=== PATIENT | male | born 1945 | race Caucasian/White ===

== ENCOUNTER 2016-11-02 05:07 | Inpatient (IN) | payer MEDICAID, MEDICARE, OTHER ==
[~2016-11-02] VITALS: Ht 185.4 cm; Wt 109.0 kg
[2016-11-02 06:08] LABS: Hemoglobin 11.7 g/dL (13.5-17.5); Mean Corpuscular Hemoglobin 28.2 pg (28.0-32.0); Mean Corpuscular Hgb Conc. 31.6 g/dL (32.0-36.0); Mean Corpuscular Volume 89.3 fL (80.0-100.0); Mean Platelet Volume 8.7 fL (7.4-10.4); Platelet Count (auto) 207 10^3/uL (140-450); Red Cell Distribution Width 15.2 % (11.6-16.0); SUSPECT VIEW TRANSMISSION; White Blood Cell 22.8 10^3/uL (4.4-10.8)
[2016-11-02 06:14] LABS: Metamyelocytes % 0; Myelocytes % 0; Promyelocytes % 0; Reactive Lymphocytes 0
[2016-11-02 06:17] LABS: Urine Bilirubin Negative (Negative); Urine Blood 1+ /uL (Negative); Urine Color Yellow (Yellow); Urine Glucose Normal (Normal); Urine Ketone Negative (Negative); Urine Nitrite POSITIVE (Negative); Urine RBC 3 /hpf (0 - 3); Urine Urobilinogen Normal (Negative)
[2016-11-02 06:26] LABS: Albumin 4.2 g/dL (3.4-5.0); BUN/Creatinine Ratio 18.1; Bilirubin, Total 0.7 mg/dL (0.2-1.0); Calcium 9.8 mg/dL (8.5-10.1); Potassium 3.9 mmol/L (3.5-5.1); Total Protein 7.1 g/dL (6.4-8.2)
[2016-11-02 06:36] LABS: Platelet Estimate Adequate; RBC Morphology Normal
[2016-11-02] MEDS ORDERED: SODIUM CHLORIDE 0.9% 1,000 ML IV ONE ×4 (07:29→08:21)
[2016-11-02] MEDS ORDERED: ACETAMINOPHEN 500 MG TAB PO ONE (09:15)
[2016-11-02] MEDS ORDERED: cefTRIAXone 1GM/50ML D5W 50 ML IV ONE (10:15)
[2016-11-02] MEDS ORDERED: DEXTROSE (50%) 50ML SYRG IV PRN (10:15)
[2016-11-02] MEDS ORDERED: METOLAZONE 5 MG TAB PO ONE (10:45)
[2016-11-02] MEDS ORDERED: TEMAZEPAM 15 MG CAP PO PRN (10:45)
[2016-11-02] MEDS ORDERED: TACROLIMUS 1 MG CAP PO ONE (10:45)
[2016-11-02] MEDS ORDERED: NIFEdipine ER 30 MG TAB PO ONE (10:45)
[2016-11-02] MEDS ORDERED: CITALOPRAM HYDROBR 20 MG TAB PO ONE (10:45)
[2016-11-02] MEDS ORDERED: MORPHINE SULF INJ 2 MG/ML SYRINGE 1ML IV PRN ×2 (10:45)
[2016-11-02] MEDS ORDERED: ONDANSETRON HCL 4 MG/2 ML VIAL IV PRN (10:45)
[2016-11-02] MEDS ORDERED: FINASTERIDE 5 MG TAB PO ONE (10:45)
[2016-11-02] MEDS ORDERED: HYDROcodone-ACET 5/325MG TAB PO PRN (10:45)
[2016-11-02] MEDS ORDERED: ACETAMINOPHEN 325 MG TAB PO PRN (10:45)
[2016-11-02] MEDS ORDERED: ASPirin-EC 81 mg tab PO ONE (10:45)
[2016-11-02] MEDS ORDERED: NITROGLYCERIN 0.4 MG SL TAB SL PRN (10:45)
[2016-11-02] MEDS: predniSONE 5 MG TAB PO SCH (10:59)
[2016-11-02] MEDS: LINEZOLID 600MG/300ML 300 ML IV SCH ×2 (11:26→23:14)
[2016-11-02] MEDS ORDERED: cloNIDine HCL 0.1 MG TAB PO ONE (11:30)
[2016-11-02] MEDS: InsuLIN REG 1unit/0.01ml Soln (100units/ml) SC SCH ×3 (11:30→22:00)
[2016-11-02] MEDS: ACCU-CHEK COMFORT CURVE STRIP VI SCH ×3 (11:30→23:10)
[2016-11-02] MEDS ORDERED: methylPREDNISolone SOD SUCC 125 MG/2 ML VL IV SCH (12:00)
[2016-11-02 13:01] VITALS: BP 158/74
[2016-11-02] MEDS: SODIUM CHLOR 0.9% PF (SALINE LOCK) 10ML VIAL IV SCH ×2 (14:00→22:28)
[2016-11-02] MEDS: ROPINIROLE 2 MG PO SCH ×2 (14:00→22:00)
[2016-11-02] MEDS ORDERED: PRE5T PO (16:52)
[2016-11-02] MEDS ORDERED: TACR1CAP19 OR (16:54)
[2016-11-02] MEDS ORDERED: GLIP1TAB38 PO (16:59)
[2016-11-02] MEDS ORDERED: MYCO360T PO (16:59)
[2016-11-02] MEDS ORDERED: MULT1TAB61 BC (17:04)
[2016-11-02] MEDS ORDERED: NIFE90TA30 PO (17:04)
[2016-11-02] MEDS ORDERED: CARV25TA PO (17:04)
[2016-11-02] MEDS ORDERED: ALLO300T2 PO (17:05)
[2016-11-02] MEDS ORDERED: ASPI-498 OR (17:05)
[2016-11-02] MEDS ORDERED: TER5T PO (17:07)
[2016-11-02] MEDS ORDERED: CITA10TA70 PO (17:08)
[2016-11-02] MEDS: CALCIUM W/VIT D (600MG/400IU) TAB PO SCH (17:15)
[2016-11-02] MEDS: glipiZIDE 5 MG TAB PO SCH (18:00)
[2016-11-02 18:38] VITALS: BP 147/67
[2016-11-02 21:33] VITALS: BP 128/61
[2016-11-02] MEDS: MYFORTIC PO SCH (22:00)
[2016-11-02] MEDS: TACROLIMUS 1 MG CAP PO SCH (22:00)
[2016-11-02] MEDS: CARVEDILOL 12.5 MG TAB PO SCH (22:25)
[2016-11-02] MEDS: ALLOPURINOL 100 MG TAB PO SCH (22:26)
[2016-11-02] MEDS: TERAZOSIN HCL 1 MG CAP PO SCH (22:49)
[2016-11-03] MEDS: TACROLIMUS 1 MG CAP PO SCH ×3 (00:36→21:29)
[2016-11-03] MEDS: MYFORTIC PO SCH ×3 (00:37→21:32)
[2016-11-03] MEDS ORDERED: VANCOMYCIN PER PHARMACY 0 MG IV SCH ×2 (01:30→03:15)
[2016-11-03] MEDS ORDERED: VANCOMYCIN 1GM/250ML D5W 250 ML IV ONE (01:45)
[2016-11-03 05:03] VITALS: BP 129/59
[2016-11-03] MEDS: SODIUM CHLOR 0.9% PF (SALINE LOCK) 10ML VIAL IV SCH ×3 (05:18→21:32)
[2016-11-03] MEDS: ROPINIROLE 2 MG PO SCH ×3 (05:18→21:32)
[2016-11-03 06:12] LABS: Hematocrit 34.1 % (41.0-53.0); Hemoglobin 10.8 g/dL (13.5-17.5); Mean Corpuscular Hemoglobin 28.9 pg (28.0-32.0); Mean Corpuscular Hgb Conc. 31.8 g/dL (32.0-36.0); Mean Platelet Volume 9.5 fL (7.4-10.4); Platelet Count (auto) 108 10^3/uL (140-450); Red Cell Distribution Width 14.6 % (11.6-16.0); SUSPECT VIEW TRANSMISSION
[2016-11-03] MEDS: InsuLIN REG 1unit/0.01ml Soln (100units/ml) SC SCH ×4 (06:33→21:39)
[2016-11-03] MEDS: ACCU-CHEK COMFORT CURVE STRIP VI SCH ×4 (06:33→21:33)
[2016-11-03] MEDS: glipiZIDE 5 MG TAB PO SCH ×2 (06:34→17:37)
[2016-11-03 06:37] LABS: White Blood Cell 30.4 10^3/uL (4.4-10.8)
[2016-11-03 06:38] LABS: Metamyelocytes % 0; Myelocytes % 0; Promyelocytes % 0; Reactive Lymphocytes 0
[2016-11-03 06:45] LABS: Albumin 3.1 g/dL (3.4-5.0); BUN/Creatinine Ratio 14.4; Bilirubin, Total 0.5 mg/dL (0.2-1.0); Calcium 8.6 mg/dL (8.5-10.1); Uric Acid 3.9 mg/dL (3.5-7.2)
[2016-11-03 07:10] LABS: Platelet Estimate Decreased
[2016-11-03 08:40] VITALS: BP 140/68
[2016-11-03] MEDS ORDERED: cefTRIAXone 1GM/50ML D5W 50 ML IV SCH (09:00)
[2016-11-03] MEDS: PIPERACILLIN-TAZOB 2.25GM 50 ML IV SCH ×3 (09:44→20:53)
[2016-11-03] MEDS: ASPirin-EC 81 mg tab PO SCH (09:44)
[2016-11-03] MEDS: ALLOPURINOL 100 MG TAB PO SCH ×2 (09:44→21:29)
[2016-11-03] MEDS: predniSONE 5 MG TAB PO SCH (09:44)
[2016-11-03] MEDS: CARVEDILOL 12.5 MG TAB PO SCH ×2 (09:45→21:31)
[2016-11-03] MEDS: CALCIUM W/VIT D (600MG/400IU) TAB PO SCH ×2 (09:46→17:37)
[2016-11-03] MEDS: FAMOTIDINE 20 MG TAB PO SCH (09:46)
[2016-11-03] MEDS: CHOLECALCIFEROL (VITD3) 1,000 UNIT TAB PO SCH (09:46)
[2016-11-03] MEDS: CINACALCET HYDROCHLORIDE 30 MG TAB PO SCH (09:46)
[2016-11-03] MEDS: NIFEdipine ER 30 MG TAB PO SCH (09:46)
[2016-11-03] MEDS: CITALOPRAM HYDROBR 20 MG TAB PO SCH (09:47)
[2016-11-03] MEDS ORDERED: METOLAZONE 5 MG TAB PO SCH (10:00)
[2016-11-03] MEDS ORDERED: SENSIPAR 30 MG PO SCH (10:00)
[2016-11-03] MEDS ORDERED: FINASTERIDE 5 MG TAB PO SCH (10:00)
[2016-11-03 12:00] VITALS: BP 155/71
[2016-11-03] MEDS: MULTIPLE VITAMIN TAB PO SCH (12:32)
[2016-11-03] MEDS ORDERED: predniSONE 5 MG TAB PO ONE (12:45)
[2016-11-03] MEDS ORDERED: LEVOFLOXACIN 250MG 50 ML IV ONE (13:00)
[2016-11-03] MEDS: SODIUM CHLORIDE 0.9% 1,000 ML IV SCH (13:42)
[2016-11-03] MEDS: FINASTERIDE 5 MG TAB PO SCH (13:42)
[2016-11-03 17:03] VITALS: BP 122/53
[2016-11-03] MEDS ORDERED: VANCOMYCIN 1,500 MG in D5W 5% 250 ML IV ONE (20:00)
[2016-11-03 21:23] VITALS: BP 105/58
[2016-11-03] MEDS: TERAZOSIN HCL 1 MG CAP PO SCH (21:28)
[2016-11-04] MEDS: PIPERACILLIN-TAZOB 2.25GM 50 ML IV SCH ×2 (03:00→08:57)
[2016-11-04] MEDS: SODIUM CHLORIDE 0.9% 1,000 ML IV SCH ×3 (04:46→22:49)
[2016-11-04 05:18] VITALS: BP 124/59
[2016-11-04] MEDS: ROPINIROLE 2 MG PO SCH ×3 (05:25→22:00)
[2016-11-04] MEDS: SODIUM CHLOR 0.9% PF (SALINE LOCK) 10ML VIAL IV SCH ×3 (05:25→22:49)
[2016-11-04 05:45] LABS: Hemoglobin 9.9 g/dL (13.5-17.5); Mean Corpuscular Hemoglobin 28.5 pg (28.0-32.0); Mean Corpuscular Hgb Conc. 31.9 g/dL (32.0-36.0); Mean Corpuscular Volume 89.4 fL (80.0-100.0); Mean Platelet Volume 9.8 fL (7.4-10.4); Platelet Count (auto) 127 10^3/uL (140-450); SUSPECT VIEW TRANSMISSION; White Blood Cell 21.3 10^3/uL (4.4-10.8)
[2016-11-04 05:51] LABS: Metamyelocytes % 0; Myelocytes % 0; Promyelocytes % 0; Reactive Lymphocytes 0
[2016-11-04 06:01] LABS: Albumin 2.8 g/dL (3.4-5.0); BUN/Creatinine Ratio 12.8; Calcium 8.2 mg/dL (8.5-10.1); Potassium 3.6 mmol/L (3.5-5.1)
[2016-11-04] MEDS: glipiZIDE 5 MG TAB PO SCH ×2 (06:02→17:38)
[2016-11-04] MEDS: InsuLIN REG 1unit/0.01ml Soln (100units/ml) SC SCH ×4 (06:02→22:42)
[2016-11-04] MEDS: ACCU-CHEK COMFORT CURVE STRIP VI SCH ×4 (06:03→22:00)
[2016-11-04 06:04] LABS: Bilirubin, Total 0.5 mg/dL (0.2-1.0); Total Protein 6.2 g/dL (6.4-8.2)
[2016-11-04 06:39] LABS: Platelet Estimate Decreased
[2016-11-04] MEDS: CALCIUM W/VIT D (600MG/400IU) TAB PO SCH ×2 (08:07→17:37)
[2016-11-04 09:00] VITALS: BP 132/70
[2016-11-04] MEDS: CINACALCET HYDROCHLORIDE 30 MG TAB PO SCH (09:49)
[2016-11-04] MEDS: TACROLIMUS 1 MG CAP PO SCH ×2 (09:49→22:52)
[2016-11-04] MEDS: CHOLECALCIFEROL (VITD3) 1,000 UNIT TAB PO SCH (09:50)
[2016-11-04] MEDS: MYFORTIC PO SCH ×2 (09:50→22:49)
[2016-11-04] MEDS: MULTIPLE VITAMIN TAB PO SCH (09:50)
[2016-11-04] MEDS: CITALOPRAM HYDROBR 20 MG TAB PO SCH (09:51)
[2016-11-04] MEDS: ASPirin-EC 81 mg tab PO SCH (09:51)
[2016-11-04] MEDS: FAMOTIDINE 20 MG TAB PO SCH (09:51)
[2016-11-04] MEDS: predniSONE 5 MG TAB PO SCH (09:51)
[2016-11-04] MEDS: CARVEDILOL 12.5 MG TAB PO SCH ×2 (09:52→22:52)
[2016-11-04] MEDS: ALLOPURINOL 100 MG TAB PO SCH ×2 (09:53→22:52)
[2016-11-04] MEDS: FINASTERIDE 5 MG TAB PO SCH (09:53)
[2016-11-04] MEDS: NIFEdipine ER 30 MG TAB PO SCH (09:53)
[2016-11-04] MEDS ORDERED: SODIUM CHLORIDE 0.9% 2,000 ML IV ONE (10:30)
[2016-11-04] MEDS ORDERED: FUROSEMIDE 40 MG/4 ML VIAL ONE (11:24)
[2016-11-04] MEDS: LEVOFLOXACIN 250MG 50 ML IV SCH (12:31)
[2016-11-04 13:00] VITALS: BP 132/69
[2016-11-04] MEDS: cefTRIAXone 1GM/50ML D5W 50 ML IV SCH (13:18)
[2016-11-04 17:00] VITALS: BP 124/62
[2016-11-04 22:11] VITALS: BP 122/67
[2016-11-04 22:30] LABS: Urine Bilirubin Negative (Negative); Urine Color Yellow (Yellow); Urine Glucose Normal (Normal); Urine Ketone Negative (Negative); Urine Nitrite Negative (Negative); Urine RBC 44 /hpf (0 - 3); Urine Squamous Epithelial Cell FEW /hpf (<5); Urine Urobilinogen Normal (Negative); Urine pH 5.5 (5.0-8.0)
[2016-11-04 22:39] LABS: Urine Blood 3+ /uL (Negative)
[2016-11-04] MEDS: TERAZOSIN HCL 1 MG CAP PO SCH (23:08)
[2016-11-05] MEDS: SODIUM CHLORIDE 0.9% 1,000 ML IV SCH (05:00)
[2016-11-05 05:08] VITALS: BP 127/66
[2016-11-05] MEDS: ROPINIROLE 2 MG PO SCH ×3 (05:44→21:06)
[2016-11-05] MEDS: SODIUM CHLOR 0.9% PF (SALINE LOCK) 10ML VIAL IV SCH ×3 (05:44→21:26)
[2016-11-05 06:05] LABS: Hemoglobin 9.8 g/dL (13.5-17.5); Mean Corpuscular Hemoglobin 28.1 pg (28.0-32.0); Mean Corpuscular Hgb Conc. 31.5 g/dL (32.0-36.0); Mean Corpuscular Volume 89.3 fL (80.0-100.0); Mean Platelet Volume 10.1 fL (7.4-10.4); Platelet Count (auto) 118 10^3/uL (140-450); Red Cell Distribution Width 15.8 % (11.6-16.0); SUSPECT VIEW TRANSMISSION; White Blood Cell 19.7 10^3/uL (4.4-10.8)
[2016-11-05 06:10] LABS: Metamyelocytes % 0; Myelocytes % 0; Promyelocytes % 0; Reactive Lymphocytes 0
[2016-11-05 06:17] LABS: Calcium 8.5 mg/dL (8.5-10.1); Potassium 3.3 mmol/L (3.5-5.1)
[2016-11-05] MEDS: glipiZIDE 5 MG TAB PO SCH ×2 (06:21→18:20)
[2016-11-05] MEDS: ACCU-CHEK COMFORT CURVE STRIP VI SCH ×4 (06:23→21:28)
[2016-11-05] MEDS: InsuLIN REG 1unit/0.01ml Soln (100units/ml) SC SCH ×4 (06:27→21:35)
[2016-11-05 06:52] LABS: Burr Cells FEW; Giant Platelets Few; Platelet Estimate Decreased
[2016-11-05 07:47] VITALS: BP 140/67
[2016-11-05] MEDS: CALCIUM W/VIT D (600MG/400IU) TAB PO SCH ×2 (09:05→18:20)
[2016-11-05] MEDS: CINACALCET HYDROCHLORIDE 30 MG TAB PO SCH (10:00)
[2016-11-05] MEDS: MULTIPLE VITAMIN TAB PO SCH (10:51)
[2016-11-05] MEDS: CITALOPRAM HYDROBR 20 MG TAB PO SCH (10:51)
[2016-11-05] MEDS: CARVEDILOL 12.5 MG TAB PO SCH ×2 (10:53→21:27)
[2016-11-05] MEDS: FINASTERIDE 5 MG TAB PO SCH (10:54)
[2016-11-05] MEDS: ALLOPURINOL 100 MG TAB PO SCH ×2 (10:54→21:27)
[2016-11-05] MEDS: FAMOTIDINE 20 MG TAB PO SCH (10:55)
[2016-11-05] MEDS: CHOLECALCIFEROL (VITD3) 1,000 UNIT TAB PO SCH (10:56)
[2016-11-05] MEDS: ASPirin-EC 81 mg tab PO SCH (10:56)
[2016-11-05] MEDS: predniSONE 5 MG TAB PO SCH (10:57)
[2016-11-05] MEDS: MYFORTIC PO SCH ×2 (10:58→21:26)
[2016-11-05] MEDS: LEVOFLOXACIN 250MG 50 ML IV SCH (11:10)
[2016-11-05 11:44] VITALS: BP 151/69
[2016-11-05] MEDS: SOD CHL 0.45% 1,000 ML IV SCH ×2 (11:50→21:05)
[2016-11-05] MEDS ORDERED: TACROLIMUS 1 MG CAP PO ONE (13:00)
[2016-11-05] MEDS: cefTRIAXone 1GM/50ML D5W 50 ML IV SCH (13:25)
[2016-11-05 15:22] LABS: Urine Bilirubin Negative (Negative); Urine Blood 3+ /uL (Negative); Urine Color Yellow (Yellow); Urine Glucose Normal (Normal); Urine Ketone Negative (Negative); Urine Mucus FEW (None Seen); Urine Nitrite Negative (Negative); Urine RBC 411 /hpf (0 - 3); Urine Squamous Epithelial Cell FEW /hpf (<5); Urine Urobilinogen Normal (Negative); Urine pH 5.5 (5.0-8.0)
[2016-11-05 16:18] VITALS: BP 148/74
[2016-11-05] MEDS: LOPERAMIDE HCL 2 MG CAP PO PRN (18:20)
[2016-11-05 19:47] LABS: BUN/Creatinine Ratio 15.2; Calcium 8.8 mg/dL (8.5-10.1); Potassium 3.3 mmol/L (3.5-5.1)
[2016-11-05] MEDS: TERAZOSIN HCL 1 MG CAP PO SCH (21:28)
[2016-11-05 22:21] VITALS: BP 148/73
[2016-11-06 04:52] VITALS: BP 137/63
[2016-11-06] MEDS: ROPINIROLE 2 MG PO SCH ×3 (05:39→22:00)
[2016-11-06] MEDS: SODIUM CHLOR 0.9% PF (SALINE LOCK) 10ML VIAL IV SCH ×3 (05:48→22:32)
[2016-11-06] MEDS: SOD CHL 0.45% 1,000 ML IV SCH ×2 (05:48→14:58)
[2016-11-06] MEDS: ACCU-CHEK COMFORT CURVE STRIP VI SCH ×4 (05:48→22:32)
[2016-11-06] MEDS: glipiZIDE 5 MG TAB PO SCH ×2 (05:51→18:00)
[2016-11-06] MEDS: InsuLIN REG 1unit/0.01ml Soln (100units/ml) SC SCH ×4 (05:51→22:00)
[2016-11-06 06:19] LABS: Basophils # (auto) 0 uL; Eosinophils # (auto) 0 uL; Eosinophils % (auto) 0.1 % (0.0-7.0); Hematocrit 32.6 % (41.0-53.0); Hemoglobin 10.4 g/dL (13.5-17.5); Lymphocytes # (auto) 0.3 uL; Lymphocytes % (auto) 1.6 % (10.0-50.0); Mean Corpuscular Hemoglobin 28.2 pg (28.0-32.0); Mean Corpuscular Volume 88.2 fL (80.0-100.0); Mean Platelet Volume 10.1 fL (7.4-10.4); Monocytes # (auto) 0.9 uL; Monocytes % (auto) 5.4 % (0.0-12.0); Neutrophils # (auto) 14.6 uL; Neutrophils % (auto) 92.9 % (37.0-80.0); Platelet Count (auto) 110 10^3/uL (140-450); Red Cell Distribution Width 15.8 % (11.6-16.0); SUSPECT VIEW TRANSMISSION; White Blood Cell 15.7 10^3/uL (4.4-10.8)
[2016-11-06 06:54] LABS: Albumin 2.7 g/dL (3.4-5.0); BUN/Creatinine Ratio 17.3; Bilirubin, Total 0.5 mg/dL (0.2-1.0); Calcium 9.1 mg/dL (8.5-10.1); Potassium 3.2 mmol/L (3.5-5.1); Total Protein 6.2 g/dL (6.4-8.2)
[2016-11-06 08:44] VITALS: BP 159/82
[2016-11-06] MEDS: CALCIUM W/VIT D (600MG/400IU) TAB PO SCH ×2 (09:26→18:21)
[2016-11-06] MEDS: ASPirin-EC 81 mg tab PO SCH (09:26)
[2016-11-06] MEDS: TACROLIMUS 1 MG CAP PO SCH ×2 (09:26→22:21)
[2016-11-06] MEDS: CHOLECALCIFEROL (VITD3) 1,000 UNIT TAB PO SCH (09:26)
[2016-11-06] MEDS: MYFORTIC PO SCH ×2 (09:26→22:31)
[2016-11-06] MEDS: CITALOPRAM HYDROBR 20 MG TAB PO SCH (09:26)
[2016-11-06] MEDS: predniSONE 5 MG TAB PO SCH (09:27)
[2016-11-06] MEDS: FINASTERIDE 5 MG TAB PO SCH (09:27)
[2016-11-06] MEDS: FAMOTIDINE 20 MG TAB PO SCH (09:27)
[2016-11-06] MEDS: ALLOPURINOL 100 MG TAB PO SCH ×2 (09:27→22:30)
[2016-11-06] MEDS: MULTIPLE VITAMIN TAB PO SCH (09:27)
[2016-11-06] MEDS: CARVEDILOL 12.5 MG TAB PO SCH ×2 (09:28→22:20)
[2016-11-06] MEDS: LEVOFLOXACIN 250MG 50 ML IV SCH (10:56)
[2016-11-06 12:50] VITALS: BP 158/83
[2016-11-06] MEDS: cefTRIAXone 1GM/50ML D5W 50 ML IV SCH (13:03)
[2016-11-06] MEDS ORDERED: POTASSIUM CHL 20 Meq TABLET PO ONE (14:30)
[2016-11-06] MEDS: hydrALAZINE HCL 25 MG TAB PO PRN ×2 (14:49→22:20)
[2016-11-06 17:39] VITALS: BP 171/89
[2016-11-06] MEDS: LABETALOL HCL 5 MG/ML 4ML SYRINGE IV PRN (19:02)
[2016-11-06 21:57] VITALS: BP 183/87
[2016-11-06] MEDS: TERAZOSIN HCL 1 MG CAP PO SCH (22:22)
[2016-11-07] MEDS: LABETALOL HCL 5 MG/ML 4ML SYRINGE IV PRN ×2 (04:15→11:16)
[2016-11-07 05:03] VITALS: BP 189/91
[2016-11-07 05:53] LABS: Basophils # (auto) 0 uL; Basophils % (auto) 0.1 % (0.0-2.0); Eosinophils # (auto) 0 uL; Eosinophils % (auto) 0.1 % (0.0-7.0); Hematocrit 31.1 % (41.0-53.0); Hemoglobin 9.9 g/dL (13.5-17.5); Lymphocytes # (auto) 0.3 uL; Lymphocytes % (auto) 2.6 % (10.0-50.0); Mean Corpuscular Hemoglobin 27.9 pg (28.0-32.0); Mean Corpuscular Volume 87.3 fL (80.0-100.0); Mean Platelet Volume 9.7 fL (7.4-10.4); Monocytes # (auto) 1.2 uL; Monocytes % (auto) 10.1 % (0.0-12.0); Neutrophils # (auto) 10.7 uL; Neutrophils % (auto) 87.1 % (37.0-80.0); Platelet Count (auto) 98 10^3/uL (140-450); Red Cell Distribution Width 15.3 % (11.6-16.0); White Blood Cell 12.3 10^3/uL (4.4-10.8)
[2016-11-07] MEDS: hydrALAZINE HCL 25 MG TAB PO PRN ×2 (05:53→12:47)
[2016-11-07] MEDS: ROPINIROLE 2 MG PO SCH ×3 (06:00→22:00)
[2016-11-07 06:02] LABS: INR 1.06 (0.9-1.15); Prothrombin Time 10.9 sec (9.37-12.3)
[2016-11-07 06:17] LABS: Albumin 2.6 g/dL (3.4-5.0); BUN/Creatinine Ratio 17.9; Bilirubin, Total 0.6 mg/dL (0.2-1.0); Calcium 10.1 mg/dL (8.5-10.1); Magnesium 1.8 mg/dL (1.6-2.6); Potassium 3.4 mmol/L (3.5-5.1); Total Protein 6.1 g/dL (6.4-8.2)
[2016-11-07] MEDS: glipiZIDE 5 MG TAB PO SCH ×2 (06:42→17:28)
[2016-11-07] MEDS: SODIUM CHLOR 0.9% PF (SALINE LOCK) 10ML VIAL IV SCH ×3 (06:43→23:49)
[2016-11-07] MEDS: ACCU-CHEK COMFORT CURVE STRIP VI SCH ×4 (06:44→23:50)
[2016-11-07] MEDS: InsuLIN REG 1unit/0.01ml Soln (100units/ml) SC SCH ×4 (06:45→22:36)
[2016-11-07 08:22] VITALS: BP 156/62
[2016-11-07] MEDS: CHOLECALCIFEROL (VITD3) 1,000 UNIT TAB PO SCH (09:26)
[2016-11-07] MEDS: TACROLIMUS 1 MG CAP PO SCH ×2 (09:26→22:16)
[2016-11-07] MEDS: CALCIUM W/VIT D (600MG/400IU) TAB PO SCH ×2 (09:26→17:27)
[2016-11-07] MEDS: CITALOPRAM HYDROBR 20 MG TAB PO SCH (09:26)
[2016-11-07] MEDS: MULTIPLE VITAMIN TAB PO SCH (09:26)
[2016-11-07] MEDS: FINASTERIDE 5 MG TAB PO SCH (09:27)
[2016-11-07] MEDS: ASPirin-EC 81 mg tab PO SCH (09:27)
[2016-11-07] MEDS: FAMOTIDINE 20 MG TAB PO SCH (09:27)
[2016-11-07] MEDS: predniSONE 5 MG TAB PO SCH (09:27)
[2016-11-07] MEDS: LOPERAMIDE HCL 2 MG CAP PO PRN ×2 (09:27→22:24)
[2016-11-07] MEDS: ALLOPURINOL 100 MG TAB PO SCH ×2 (09:27→22:18)
[2016-11-07] MEDS: CARVEDILOL 12.5 MG TAB PO SCH ×2 (09:28→22:17)
[2016-11-07] MEDS: MYFORTIC PO SCH ×2 (09:28→22:28)
[2016-11-07] MEDS: SOD CHL 0.45% 1,000 ML IV SCH ×2 (10:58→22:45)
[2016-11-07 12:50] VITALS: BP 196/100
[2016-11-07] MEDS ORDERED: NIFEdipine ER 30 MG TAB PO STA (13:01)
[2016-11-07] MEDS: cefTRIAXone 1GM/50ML D5W 50 ML IV SCH (13:11)
[2016-11-07 15:00] VITALS: BP 157/75
[2016-11-07 16:40] VITALS: BP 189/85
[2016-11-07] MEDS ORDERED: hydrALAZINE HCL 20 MG/ML VL IV PRN (17:30)
[2016-11-07] MEDS ORDERED: hydrALAZINE HCL 20 MG/ML VL IV SCH (18:00)
[2016-11-07 21:36] VITALS: BP 152/74
[2016-11-07] MEDS: TERAZOSIN HCL 1 MG CAP PO SCH (22:18)
[2016-11-07] MEDS: NIFEdipine ER 30 MG TAB PO SCH (22:19)
[2016-11-08 04:31] VITALS: BP 133/61
[2016-11-08 05:17] LABS: Basophils # (auto) 0 uL; Basophils % (auto) 0.1 % (0.0-2.0); Eosinophils # (auto) 0.2 uL; Eosinophils % (auto) 1.4 % (0.0-7.0); Hematocrit 31.5 % (41.0-53.0); Hemoglobin 10.2 g/dL (13.5-17.5); Lymphocytes # (auto) 0.7 uL; Lymphocytes % (auto) 5.8 % (10.0-50.0); Mean Corpuscular Hemoglobin 28.1 pg (28.0-32.0); Mean Corpuscular Hgb Conc. 32.3 g/dL (32.0-36.0); Mean Corpuscular Volume 86.9 fL (80.0-100.0); Mean Platelet Volume 9.7 fL (7.4-10.4); Monocytes % (auto) 8.5 % (0.0-12.0); Neutrophils % (auto) 84.2 % (37.0-80.0); Platelet Count (auto) 117 10^3/uL (140-450); White Blood Cell 11.9 10^3/uL (4.4-10.8)
[2016-11-08 05:31] LABS: INR 1.15 (0.9-1.15); Prothrombin Time 11.8 sec (9.37-12.3)
[2016-11-08 05:38] LABS: Calcium 8.9 mg/dL (8.5-10.1); Magnesium 1.8 mg/dL (1.6-2.6); Potassium 3.4 mmol/L (3.5-5.1)
[2016-11-08 05:46] LABS: BUN/Creatinine Ratio 17.6
[2016-11-08] MEDS: ROPINIROLE 2 MG PO SCH ×3 (06:00→22:00)
[2016-11-08] MEDS: SODIUM CHLOR 0.9% PF (SALINE LOCK) 10ML VIAL IV SCH ×3 (06:32→22:12)
[2016-11-08] MEDS: ACCU-CHEK COMFORT CURVE STRIP VI SCH ×4 (06:32→22:00)
[2016-11-08] MEDS: InsuLIN REG 1unit/0.01ml Soln (100units/ml) SC SCH ×3 (06:50→16:45)
[2016-11-08] MEDS: glipiZIDE 5 MG TAB PO SCH ×2 (06:51→17:37)
[2016-11-08] MEDS: CALCIUM W/VIT D (600MG/400IU) TAB PO SCH ×2 (08:15→17:37)
[2016-11-08 09:00] VITALS: BP 129/56
[2016-11-08] MEDS: TACROLIMUS 1 MG CAP PO SCH ×2 (10:00→22:06)
[2016-11-08] MEDS: CITALOPRAM HYDROBR 20 MG TAB PO SCH (10:01)
[2016-11-08] MEDS: predniSONE 5 MG TAB PO SCH (10:01)
[2016-11-08] MEDS: NIFEdipine ER 30 MG TAB PO SCH ×2 (10:01→22:05)
[2016-11-08] MEDS: ALLOPURINOL 100 MG TAB PO SCH ×2 (10:02→22:05)
[2016-11-08] MEDS: MULTIPLE VITAMIN TAB PO SCH (10:02)
[2016-11-08] MEDS: ASPirin-EC 81 mg tab PO SCH (10:02)
[2016-11-08] MEDS: CHOLECALCIFEROL (VITD3) 1,000 UNIT TAB PO SCH (10:02)
[2016-11-08] MEDS: FAMOTIDINE 20 MG TAB PO SCH (10:02)
[2016-11-08] MEDS: FINASTERIDE 5 MG TAB PO SCH (10:02)
[2016-11-08] MEDS: CARVEDILOL 12.5 MG TAB PO SCH ×2 (10:03→22:05)
[2016-11-08] MEDS: MYFORTIC PO SCH ×2 (10:03→11:55)
[2016-11-08] MEDS ORDERED: LABETALOL HCL 5 MG/ML 4ML SYRINGE IV PRN (11:30)
[2016-11-08] MEDS ORDERED: POTASSIUM CHL 20 Meq TABLET PO ONE (11:30)
[2016-11-08] MEDS: LEVOFLOXACIN 250 MG TAB PO SCH (11:59)
[2016-11-08 12:23] VITALS: BP 141/61
[2016-11-08] MEDS: SOD CHL 0.45% 1,000 ML IV SCH (15:40)
[2016-11-08 16:41] VITALS: BP 124/52
[2016-11-08] MEDS: LOPERAMIDE HCL 2 MG CAP PO PRN ×2 (16:51→22:24)
[2016-11-08] MEDS: TERAZOSIN HCL 1 MG CAP PO SCH (22:04)
[2016-11-08 22:17] VITALS: BP 134/68
[2016-11-09] MEDS: MYFORTIC PO SCH ×2 (01:23→10:00)
[2016-11-09] MEDS: InsuLIN REG 1unit/0.01ml Soln (100units/ml) SC SCH ×3 (01:27→11:30)
[2016-11-09 05:04] VITALS: BP 149/65
[2016-11-09 05:34] LABS: Calcium 8.9 mg/dL (8.5-10.1); Potassium 3.6 mmol/L (3.5-5.1)
[2016-11-09 05:40] LABS: BUN/Creatinine Ratio 19.8
[2016-11-09] MEDS: ROPINIROLE 2 MG PO SCH (05:43)
[2016-11-09] MEDS: SODIUM CHLOR 0.9% PF (SALINE LOCK) 10ML VIAL IV SCH (05:43)
[2016-11-09] MEDS: ACCU-CHEK COMFORT CURVE STRIP VI SCH ×2 (06:18→11:18)
[2016-11-09] MEDS: glipiZIDE 5 MG TAB PO SCH (06:49)
[2016-11-09 08:50] VITALS: BP 147/70
[2016-11-09] MEDS: CALCIUM W/VIT D (600MG/400IU) TAB PO SCH (08:58)
[2016-11-09] MEDS: FAMOTIDINE 20 MG TAB PO SCH (10:00)
[2016-11-09] MEDS: CITALOPRAM HYDROBR 20 MG TAB PO SCH (11:08)
[2016-11-09] MEDS: TACROLIMUS 1 MG CAP PO SCH (11:08)
[2016-11-09] MEDS: predniSONE 5 MG TAB PO SCH (11:09)
[2016-11-09] MEDS: CHOLECALCIFEROL (VITD3) 1,000 UNIT TAB PO SCH (11:09)
[2016-11-09] MEDS: FINASTERIDE 5 MG TAB PO SCH (11:10)
[2016-11-09] MEDS: NIFEdipine ER 30 MG TAB PO SCH (11:11)
[2016-11-09] MEDS: ALLOPURINOL 100 MG TAB PO SCH (11:11)
[2016-11-09] MEDS: LEVOFLOXACIN 250 MG TAB PO SCH (11:12)
[2016-11-09] MEDS: CARVEDILOL 12.5 MG TAB PO SCH (11:13)
[2016-11-09] MEDS: MULTIPLE VITAMIN TAB PO SCH (11:14)
[2016-11-09] MEDS: ASPirin-EC 81 mg tab PO SCH (11:14)
[2016-11-09 12:22] VITALS: BP 126/76
[2016-11-09 13:07] VITALS: BP 147/70
== END 2016-11-09 13:45 | disposition home or self-care (01) | DRG 871 ==
LOC: ER 05:13 → TELE 05:14 → TELE-E-ADS 12:14 → TELE-EAST 16:53
PROVIDERS: ADMIT Internal Medicine; ATTEND Internal Medicine
DX: A41.9 Sepsis, unspecified organism (principal); N18.6 End stage renal disease; N17.0 Acute kidney failure with tubular necrosis; Z94.0 Kidney transplant status; I12.0 Hypertensive chronic kidney disease with stage 5 chronic kidney disease or end stage renal disease; D63.8 Anemia in other chronic diseases classified elsewhere; E11.22 Type 2 diabetes mellitus with diabetic chronic kidney disease; N32.0 Bladder-neck obstruction; M10.9 Gout, unspecified; N40.0 Benign prostatic hyperplasia without lower urinary tract symptoms; B96.20 Unspecified Escherichia coli [E. coli] as the cause of diseases classified elsewhere; E66.9 Obesity, unspecified; Z83.3 Family history of diabetes mellitus; Z82.49 Family history of ischemic heart disease and other diseases of the circulatory system
CPT/HCPCS: 36415; 71010; 76775; 78707; 80048; 80053; 80197; 80202; 81001; 82570; 82962; 83036; 83605; 83735; 84156; 84300; 84443; 84550; 85007; 85025; 85027; 85049; 85610; 87040; 87077; 87086; 87088; 87186; 87493; 93306; 96361; 96374; 97001; J0696; J1815; J2543; J3490; J7507